=== PATIENT | female | born 1985 | race African-American/Black ===

== ENCOUNTER 2021-03-06 14:09 | Emergency (ER) | payer OTHER ==
[2021-03-06 14:16] VITALS: BP 137/82; PULSE 97; TEMP 98; BMI 21.9
[2021-03-06 15:19] LABS: BASO % 1.3 % (0-2.0); EOS % 3.6 % (0-4.5); HEMATOCRIT 39.6 % (32.4-45.2); LYMPH % 17.9 % (8-40); MCH 29.7 pg (25.7-33.7); MCHC 32.9 g/dl (32.0-36.0); MEAN CELL VOLUME 90.1 fl (80-96); MEAN PLT VOLUME 9.4 fl (7.5-11.1); MONO % 16.5 % (3.8-10.2); NEUT % 60.7 % (42.8-82.8); RBC 4.39 M/mm3 (3.60-5.2); RDW 14.5 % (11.6-15.6); WHITE BLOOD COUNT 5.2 K/mm3 (4.0-10.0)
[2021-03-06 15:24] LABS: HCG,QUALITATIVE URINE Negative
[2021-03-06 15:39] LABS: EPI CELLS >36 /uL (0-25.1); HYALINE CASTS 20 /uL (0-3.1); PH,URINE 6.5 (5.0-8.0); URINE APPEARANCE TURBID; URINE BACTERIA 3729 /uL (0-1359); URINE BILIRUBIN NEGATIVE (NEGATIVE); URINE COLOR ORANGE; URINE GLUCOSE (UA) NEGATIVE (NEGATIVE); URINE KETONE TRACE (NEGATIVE); URINE LEUK ESTERASE 3+ (NEGATIVE); URINE NITRITE NEGATIVE (NEGATIVE); URINE PROTEIN 2+ (NEGATIVE); URINE WBC 5589 /uL (0-25.8)
[2021-03-06 15:42] LABS: CALCIUM 8.9 mg/dL (8.5-10.1)
[2021-03-06 15:43] LABS: ALBUMIN 3.4 g/dl (3.4-5.0)
[2021-03-06 15:46] LABS: CREATININE 0.7 mg/dL (0.55-1.3)
[2021-03-06 15:48] LABS: BILIRUBIN,TOTAL 1.6 mg/dL (0.2-1); TOT PROT 9.7 g/dl (6.4-8.2)
[2021-03-06] MEDS ORDERED: CEPHALEXIN MONOHYDRATE 500 MG CAPSULE (UD) PO ONE (15:52)
[2021-03-06] MEDS ORDERED: CEPHALEXIN MONOHYDRATE 500 MG CAPSULE (UD) ONE (15:55)
[2021-03-06 16:44] LABS: PLATELET COUNT 145 10^3/uL (134-434)
[2021-03-06 19:09] LABS: URINE RBC 2856.7 /uL (0-23.9)
[2021-03-06 19:10] LABS: YEAST NEGATIVE (NEGATIVE)
== END 2021-03-06 19:00 | disposition home or self-care (01) ==
LOC: JERFT 14:09 → JER 14:09 → JERFT 19:00
DX: O20.8 Other hemorrhage in early pregnancy (principal); N30.00 Acute cystitis without hematuria
CPT/HCPCS: 36415; 76830-TC; 80053; 81003; 84703; 85025; 87086; 99284-25

== ENCOUNTER 2021-07-09 16:15 | Emergency (ER) | payer OTHER ==
[2021-07-09 16:21] VITALS: BP 143/90; PULSE 94; TEMP 98.9; BMI 23.8
[2021-07-09 19:09] LABS: BASO % 0.3 % (0-2.0); EOS % 3.5 % (0-4.5); HEMATOCRIT 37.3 % (32.4-45.2); HEMOGLOBIN 12.2 GM/dL (10.7-15.3); LYMPH % 13.3 % (8-40); MCH 29.9 pg (25.7-33.7); MCHC 32.8 g/dl (32.0-36.0); MEAN CELL VOLUME 91.1 fl (80-96); MEAN PLT VOLUME 9.1 fl (7.5-11.1); MONO % 18.9 % (3.8-10.2); PLATELET COUNT 139 10^3/uL (134-434); RDW 15.4 % (11.6-15.6); WHITE BLOOD COUNT 6.2 K/mm3 (4.0-10.0)
[2021-07-09 19:20] LABS: ACTIVATED PTT 41.7 SECONDS (25.2-36.5); INR 1.68 (0.83-1.09); PROTHROMBIN TIME (PATIENT) 19.4 SEC (9.7-13.0)
[2021-07-09 19:31] LABS: CALCIUM 9.4 mg/dL (8.5-10.1)
[2021-07-09 19:32] LABS: ALBUMIN 3.4 g/dl (3.4-5.0); BLOOD UREA NITROGEN 5.2 mg/dL (7-18)
[2021-07-09 19:35] LABS: CREATININE 0.7 mg/dL (0.55-1.3)
[2021-07-09 19:36] LABS: BILIRUBIN,TOTAL 2.5 mg/dL (0.2-1)
== END 2021-07-09 19:53 | disposition home or self-care (01) ==
LOC: JER 16:15
DX: R23.0 Cyanosis (principal)
CPT/HCPCS: 36415; 80053; 85025; 85610; 85730; 99283-25

== ENCOUNTER 2023-03-21 16:32 | Inpatient (IN) | payer OTHER ==
[~2023-03-21 16:32] MED LIST: FOLIC ACID INJECTION - 1 MG, THIAMINE HCL 100 MG, MULTIVIT INJECTION ADULT 10 ML in SOD... IVPB ONE
[2023-03-21 18:43] LABS: INR 2.09 (0.83-1.09); PROTHROMBIN TIME (PATIENT) 24.1 SEC (9.7-13.0)
[2023-03-21 18:44] LABS: EOS % 3.9 % (0-4.5); HEMATOCRIT 26.6 % (32.4-45.2); HEMOGLOBIN 8.6 GM/dL (10.7-15.3); MCH 32.5 pg (25.7-33.7); MCHC 32.3 g/dl (32.0-36.0); MEAN CELL VOLUME 100.6 fl (80-96); MEAN PLT VOLUME 9.6 fl (7.5-11.1); MONO % 16.6 % (3.8-10.2); NEUT % 65.5 % (42.8-82.8); PLATELET COUNT 140 10^3/uL (134-434); RBC 2.64 M/mm3 (3.60-5.2); WHITE BLOOD COUNT 8.5 K/mm3 (4.0-10.0)
[2023-03-21 18:46] LABS: ACTIVATED PTT 38.4 SECONDS (25.2-36.5)
[2023-03-21 18:49] LABS: POTASSIUM 3.4 mmol/L (3.5-5.1)
[2023-03-21 18:51] LABS: ALBUMIN 2.1 g/dl (3.4-5.0); CALCIUM 8.2 mg/dL (8.5-10.1); MAGNESIUM 1.5 mg/dL (1.8-2.4)
[2023-03-21 18:55] LABS: CREATININE 0.8 mg/dL (0.55-1.3)
[2023-03-21 18:56] LABS: BILIRUBIN,TOTAL 7.1 mg/dL (0.2-1); TOT PROT 7.9 g/dl (6.4-8.2)
[2023-03-21] MEDS ORDERED: POTASSIUM CHLORIDE ORAL LIQUID 20 MEQ/15 ML PO ONE (19:21)
[2023-03-21] MEDS ORDERED: MAGNESIUM SULF 50% (8.12 MEQ/2 ML-1 GM VIAL) IVPB ONE (19:21)
[2023-03-21] MEDS ORDERED: MAGNESIUM 1GM/D5W - 1 GM/100 ML IVPB IVPB ONE (20:08)
[2023-03-21] MEDS ORDERED: POTASSIUM CHLORIDE ORAL LIQUID 20 MEQ/15 ML ONE (20:08)
[2023-03-21 21:52] LABS: BILIRUBIN,DIRECT 5.8 mg/dL (0.0-0.2)
[2023-03-21] MEDS ORDERED: ALBUTEROL SO4 HFA INHALER IH PRN (21:56)
[2023-03-21] MEDS: BUDESONIDE/FORMETEROL FUMARATE 160/4.5 mcg INHALER IH SCH (22:54)
[2023-03-21 23:22] LABS: EPI CELLS 21 /uL (0-25.1); HYALINE CASTS 11 /uL (0-3.1); URINE APPEARANCE CLOUDY; URINE BACTERIA 17 /uL (0-1359); URINE BILIRUBIN 2+ (NEGATIVE); URINE COLOR DK YELLOW; URINE GLUCOSE (UA) NEGATIVE (NEGATIVE); URINE KETONE NEGATIVE (NEGATIVE); URINE LEUK ESTERASE 3+ (NEGATIVE); URINE NITRITE NEGATIVE (NEGATIVE); URINE PROTEIN TRACE (NEGATIVE); URINE WBC 883 /uL (0-25.8)
[2023-03-21 23:37] LABS: URINE RBC 552.8 /uL (0-23.9)
[2023-03-22 00:02] VITALS: BMI 29.0
[2023-03-22] MEDS ORDERED: FUROSEMIDE 40 MG/4 ML INJECTABLE VIAL IVPUSH ONE (00:05)
[2023-03-22] MEDS ORDERED: PHYTONADIONE 5 MG TABLET PO SCH (00:06)
[2023-03-22] MEDS ORDERED: THIAMINE HCL 100 MG TABLET (FP) PO SCH (00:08)
[2023-03-22] MEDS ORDERED: FOLIC ACID INJECTION - 1 MG, THIAMINE HCL 100 MG, MULTIVIT INJECTION ADULT 10 ML in SOD... IVPB ONE (01:00)
[2023-03-22] MEDS: LACTULOSE 20 GM/30 ML UDC (FOR ORAL USE ONLY) PO SCH ×4 (06:46→22:19)
[2023-03-22 09:21] LABS: HEMATOCRIT 25.6 % (32.4-45.2); HEMOGLOBIN 8.6 GM/dL (10.7-15.3); MCHC 33.4 g/dl (32.0-36.0); MEAN CELL VOLUME 98.6 fl (80-96); MEAN PLT VOLUME 9.5 fl (7.5-11.1); PLATELET COUNT 124 10^3/uL (134-434); RDW 17.1 % (11.6-15.6); WHITE BLOOD COUNT 8.6 K/mm3 (4.0-10.0)
[2023-03-22 09:25] LABS: INR 2.34 (0.83-1.09); PROTHROMBIN TIME (PATIENT) 26.9 SEC (9.7-13.0)
[2023-03-22 09:27] LABS: ACTIVATED PTT 38.8 SECONDS (25.2-36.5)
[2023-03-22] MEDS ORDERED: PrednisoLONE 15 MG/5 ML UNIT-DOSE CUP PO SCH (10:00)
[2023-03-22] MEDS ORDERED: FUROSEMIDE 40 MG TABLET (FP) PO SCH (10:00)
[2023-03-22] MEDS: SPIRONOLACTONE 25 MG TABLET PO SCH ×3 (10:41→15:49)
[2023-03-22] MEDS: THIAMINE HCL 100 MG TABLET (FP) PO SCH (10:42)
[2023-03-22] MEDS: RIFAXIMIN 550 MG TABLET PO SCH ×2 (10:42→22:19)
[2023-03-22] MEDS: FOLIC ACID 1 MG TABLET (FP) PO SCH ×2 (10:43)
[2023-03-22 10:46] LABS: BLOOD UREA NITROGEN 5.7 mg/dL (7-18)
[2023-03-22 10:48] LABS: CALCIUM 8.6 mg/dL (8.5-10.1)
[2023-03-22] MEDS: BUDESONIDE/FORMETEROL FUMARATE 160/4.5 mcg INHALER IH SCH ×2 (10:48→22:21)
[2023-03-22 10:49] LABS: CREATININE 0.7 mg/dL (0.55-1.3); MAGNESIUM 1.8 mg/dL (1.8-2.4); PHOSPHOROUS 2.4 mg/dL (2.5-4.9)
[2023-03-22 10:50] LABS: BILIRUBIN,DIRECT 5.3 mg/dL (0.0-0.2)
[2023-03-22 10:52] LABS: BILIRUBIN,TOTAL 6.5 mg/dL (0.2-1); TOT PROT 7.5 g/dl (6.4-8.2)
[2023-03-22] MEDS: PHYTONADIONE 5 MG TABLET PO SCH (11:17)
[2023-03-22 12:51] LABS: HIV INTERPRETATION NEGATIVE (NEGATIVE)
[2023-03-22] MEDS: NAPH,MB-DB/K PH,MBDB POWDER PACKET PO SCH ×2 (15:49→22:19)
[2023-03-22] MEDS ORDERED: FUROSEMIDE 40 MG/4 ML INJECTABLE VIAL IVPUSH SCH (23:56)
[2023-03-23] MEDS: LACTULOSE 20 GM/30 ML UDC (FOR ORAL USE ONLY) PO SCH ×3 (06:12→21:49)
[2023-03-23 09:34] LABS: INR 2.39 (0.83-1.09); PROTHROMBIN TIME (PATIENT) 27.5 SEC (9.7-13.0)
[2023-03-23 09:35] LABS: HEMATOCRIT 25.1 % (32.4-45.2); HEMOGLOBIN 8.6 GM/dL (10.7-15.3); MCH 33.7 pg (25.7-33.7); MCHC 34.3 g/dl (32.0-36.0); MEAN CELL VOLUME 98.4 fl (80-96); MEAN PLT VOLUME 9.4 fl (7.5-11.1); PLATELET COUNT 133 10^3/uL (134-434); RBC 2.55 M/mm3 (3.60-5.2); RDW 17.2 % (11.6-15.6); WHITE BLOOD COUNT 10.7 K/mm3 (4.0-10.0)
[2023-03-23] MEDS: RIFAXIMIN 550 MG TABLET PO SCH ×2 (09:43→21:49)
[2023-03-23] MEDS: THIAMINE HCL 100 MG TABLET (FP) PO SCH (09:44)
[2023-03-23] MEDS: SPIRONOLACTONE 25 MG TABLET PO SCH (09:44)
[2023-03-23] MEDS: FOLIC ACID 1 MG TABLET (FP) PO SCH (09:45)
[2023-03-23] MEDS: FUROSEMIDE 20 MG TABLET (FP) PO SCH (09:45)
[2023-03-23] MEDS: PHYTONADIONE 5 MG TABLET PO SCH (09:45)
[2023-03-23] MEDS: BUDESONIDE/FORMETEROL FUMARATE 160/4.5 mcg INHALER IH SCH ×2 (09:46→21:50)
[2023-03-23 10:02] LABS: POTASSIUM 3.8 mmol/L (3.5-5.1)
[2023-03-23 10:17] LABS: CALCIUM 8.4 mg/dL (8.5-10.1)
[2023-03-23 10:18] LABS: ALBUMIN 1.8 g/dl (3.4-5.0); MAGNESIUM 1.6 mg/dL (1.8-2.4)
[2023-03-23 10:21] LABS: CREATININE 0.9 mg/dL (0.55-1.3); PHOSPHOROUS 2.7 mg/dL (2.5-4.9)
[2023-03-23 10:23] LABS: BILIRUBIN,TOTAL 5.9 mg/dL (0.2-1); TOT PROT 7.2 g/dl (6.4-8.2)
[2023-03-23] MEDS ORDERED: MAGNESIUM SULF 50% (8.12 MEQ/2 ML-1 GM VIAL) IVPB ONE (16:27)
[2023-03-24 04:04] VITALS: RESP 18
[2023-03-24] MEDS: LACTULOSE 20 GM/30 ML UDC (FOR ORAL USE ONLY) PO SCH ×3 (07:11→21:24)
[2023-03-24 09:40] LABS: HEMATOCRIT 26.9 % (32.4-45.2); HEMOGLOBIN 8.9 GM/dL (10.7-15.3); MCH 33.4 pg (25.7-33.7); MCHC 33.1 g/dl (32.0-36.0); MEAN CELL VOLUME 100.9 fl (80-96); MEAN PLT VOLUME 9.2 fl (7.5-11.1); PLATELET COUNT 133 10^3/uL (134-434); RBC 2.67 M/mm3 (3.60-5.2); RDW 16.8 % (11.6-15.6); WHITE BLOOD COUNT 10.6 K/mm3 (4.0-10.0)
[2023-03-24 09:43] LABS: INR 2.16 (0.83-1.09); PROTHROMBIN TIME (PATIENT) 24.9 SEC (9.7-13.0)
[2023-03-24 10:08] LABS: POTASSIUM 4.3 mmol/L (3.5-5.1)
[2023-03-24 10:16] LABS: CALCIUM 8.7 mg/dL (8.5-10.1)
[2023-03-24 10:17] LABS: BILIRUBIN,DIRECT 5.1 mg/dL (0.0-0.2); BLOOD UREA NITROGEN 8.3 mg/dL (7-18); MAGNESIUM 1.8 mg/dL (1.8-2.4)
[2023-03-24 10:20] LABS: CREATININE 0.8 mg/dL (0.55-1.3); PHOSPHOROUS 3.5 mg/dL (2.5-4.9)
[2023-03-24 10:21] LABS: BILIRUBIN,TOTAL 6.5 mg/dL (0.2-1); TOT PROT 7.6 g/dl (6.4-8.2)
[2023-03-24] MEDS: FUROSEMIDE 20 MG TABLET (FP) PO SCH (10:44)
[2023-03-24] MEDS: THIAMINE HCL 100 MG TABLET (FP) PO SCH (10:44)
[2023-03-24] MEDS: SPIRONOLACTONE 25 MG TABLET PO SCH (10:44)
[2023-03-24] MEDS: FOLIC ACID 1 MG TABLET (FP) PO SCH (10:44)
[2023-03-24] MEDS: PHYTONADIONE 5 MG TABLET PO SCH (10:44)
[2023-03-24] MEDS: BUDESONIDE/FORMETEROL FUMARATE 160/4.5 mcg INHALER IH SCH ×2 (10:44→21:25)
[2023-03-24] MEDS: RIFAXIMIN 550 MG TABLET PO SCH ×2 (10:44→21:25)
[2023-03-24 18:51] LABS: BF WBC & OTHER NUCLEATED CELLS 256 /mm3; BODY FLUID MACROPHAGES 16 %; BODY FLUID MESOTHELIAL 2 %; BODY FLUID MONOCYTE 60 %
[2023-03-24 20:30] LABS: ALBUMIN 2.1 g/dl (3.4-5.0)
[2023-03-25] MEDS: LACTULOSE 20 GM/30 ML UDC (FOR ORAL USE ONLY) PO SCH ×2 (06:13→13:38)
[2023-03-25 08:38] LABS: HEMATOCRIT 27.6 % (32.4-45.2); HEMOGLOBIN 8.9 GM/dL (10.7-15.3); MCH 32.4 pg (25.7-33.7); MCHC 32.1 g/dl (32.0-36.0); MEAN CELL VOLUME 100.9 fl (80-96); MEAN PLT VOLUME 9.2 fl (7.5-11.1); RBC 2.74 M/mm3 (3.60-5.2); RDW 17.2 % (11.6-15.6)
[2023-03-25 08:43] LABS: WHITE BLOOD COUNT 11.3 K/mm3 (4.0-10.0)
[2023-03-25 09:11] LABS: POTASSIUM 4.6 mmol/L (3.5-5.1)
[2023-03-25 09:15] LABS: CALCIUM 8.3 mg/dL (8.5-10.1)
[2023-03-25 09:16] LABS: BLOOD UREA NITROGEN 11.5 mg/dL (7-18)
[2023-03-25] MEDS: RIFAXIMIN 550 MG TABLET PO SCH (09:16)
[2023-03-25] MEDS: BUDESONIDE/FORMETEROL FUMARATE 160/4.5 mcg INHALER IH SCH (09:16)
[2023-03-25] MEDS: FOLIC ACID 1 MG TABLET (FP) PO SCH (09:16)
[2023-03-25] MEDS: FUROSEMIDE 20 MG TABLET (FP) PO SCH (09:16)
[2023-03-25] MEDS: SPIRONOLACTONE 25 MG TABLET PO SCH (09:16)
[2023-03-25] MEDS: THIAMINE HCL 100 MG TABLET (FP) PO SCH (09:16)
[2023-03-25 09:19] LABS: CREATININE 0.8 mg/dL (0.55-1.3)
[2023-03-25 09:20] LABS: TOT PROT 7.5 g/dl (6.4-8.2)
[2023-03-25 09:21] LABS: BILIRUBIN,TOTAL 5.8 mg/dL (0.2-1)
[2023-03-25 09:38] LABS: PLATELET COUNT 78 10^3/uL (134-434)
[2023-03-25 14:19] VITALS: BP 105/66; PULSE 84; TEMP 98.1
[2023-03-26 12:08] LABS: BODY FLUID ALBUMIN 0.6 g/dL (Not Estab.)
== END 2023-03-25 18:19 | disposition home or self-care (01) | DRG 280 ==
LOC: JER 16:32 → JERBED 20:54 → OBSVTOIN 22:09 → JERBED 23:24 → J6S 03-22 00:07
PROVIDERS: ADMIT Internal Medicine; ATTEND Internal Medicine
PROC: BW40ZZZ Ultrasonography of Abdomen (ICD-10-PCS; principal; 2023-03-24)
PROC: 0W9G3ZZ Drainage of Peritoneal Cavity, Percutaneous Approach (ICD-10-PCS; 2023-03-24)
DX: K70.31 Alcoholic cirrhosis of liver with ascites (principal); K70.11 Alcoholic hepatitis with ascites; K76.6 Portal hypertension; I85.10 Secondary esophageal varices without bleeding; K50.90 Crohn's disease, unspecified, without complications; E80.6 Other disorders of bilirubin metabolism; F10.10 Alcohol abuse, uncomplicated; R79.89 Other specified abnormal findings of blood chemistry; E87.6 Hypokalemia; E83.42 Hypomagnesemia; K76.0 Fatty (change of) liver, not elsewhere classified
CPT/HCPCS: 36415; 71045-TC-FY; 76700-TC; 76942-TC; 80048; 80053; 80061; 80076; 81003; 82040; 82042; 82140; 82150; 82248; 82465; 82728; 82945; 83010; 83540; 83550; 83605; 83615; 83690; 83735; 83986; 84100; 84157; 84466; 84478; 84703; 85025; 85027; 85610; 85730; 86850; 86900; 86901; 87070; 87075; 87102; 87116; 87205; 87206; 87210; 87389; 88108; 88305-TC; 93005; 93010; 99285-25; G0378

== ENCOUNTER 2023-11-11 13:50 | Emergency (ER) | payer OTHER ==
[2023-11-11 14:03] VITALS: TEMP 98.8; BMI 28.5
[2023-11-11 15:18] LABS: BASO % 0.5 % (0-2.0); EOS % 3.1 % (0-4.5); HEMATOCRIT 26.6 % (32.4-45.2); LYMPH % 11.2 % (8-40); MCH 34.3 pg (25.7-33.7); MCHC 33.7 g/dl (32.0-36.0); MEAN PLT VOLUME 9.1 fl (7.5-11.1); MONO % 13.9 % (3.8-10.2); NEUT % 71.3 % (42.8-82.8); PLATELET COUNT 105 10^3/uL (134-434); RBC 2.61 M/mm3 (3.60-5.2); WHITE BLOOD COUNT 8.7 K/mm3 (4.0-10.0)
[2023-11-11 15:28] LABS: ACTIVATED PTT 35.4 SECONDS (25.2-36.5); INR 2.21 (0.83-1.09); PROTHROMBIN TIME (PATIENT) 24.8 SEC (9.7-13.0)
[2023-11-11 15:46] LABS: POTASSIUM 5.1 mmol/L (3.5-5.1)
[2023-11-11 15:48] LABS: ALBUMIN 1.6 g/dl (3.4-5.0); BLOOD UREA NITROGEN 8.1 mg/dL (7-18); CALCIUM 8.1 mg/dL (8.5-10.1)
[2023-11-11 15:50] LABS: BILIRUBIN,DIRECT 8.2 mg/dL (0.0-0.2); CREATININE 1.3 mg/dL (0.55-1.3)
[2023-11-11 15:53] LABS: BILIRUBIN,TOTAL 14.5 mg/dL (0.2-1); TOT PROT 7.7 g/dl (6.4-8.2)
[2023-11-11] MEDS ORDERED: MAGNESIUM SULFATE IN WATER 2 GM/50 ML IVPB IVPB ONE (16:20)
[2023-11-11] MEDS: MAGNESIUM SULF 50% (8.12 MEQ/2 ML-1 GM VIAL) IVPB ONE (16:25)
[2023-11-11 17:07] LABS: MAGNESIUM 1.8 mg/dL (1.8-2.4)
[2023-11-11 17:33] VITALS: BP 106/65; PULSE 79; RESP 16
== END 2023-11-11 18:40 | disposition home or self-care (01) ==
LOC: JER 13:50
PROC: 3E033GC Introduction of Other Therapeutic Substance into Peripheral Vein, Percutaneous Approach (ICD-10-PCS; principal; 2023-11-11)
DX: K70.31 Alcoholic cirrhosis of liver with ascites (principal); R10.9 Unspecified abdominal pain; R14.0 Abdominal distension (gaseous)
CPT/HCPCS: 36415; 76705-TC; 80053; 80076; 83690; 83735; 84703; 85025; 85610; 85730; 93005; 93010; 96374; 99285-25

== ENCOUNTER 2024-03-17 14:38 | Inpatient (IN) | payer OTHER ==
[2024-03-17 14:46] VITALS: BMI 31.1
[2024-03-17] MEDS ORDERED: FUROSEMIDE 40 MG/4 ML INJECTABLE VIAL ONE (17:18)
[2024-03-17] MEDS: FUROSEMIDE 40 MG/4 ML INJECTABLE VIAL IVPUSH ONE (17:23)
[2024-03-17 17:26] LABS: BASO % 0.7 % (0-2.0); EOS % 6.4 % (0-4.5); HEMATOCRIT 23.4 % (32.4-45.2); HEMOGLOBIN 7.8 GM/dL (10.7-15.3); LYMPH % 17.3 % (8-40); MCH 36.2 pg (25.7-33.7); MCHC 33.4 g/dl (32.0-36.0); MEAN CELL VOLUME 108.2 fl (80-96); MEAN PLT VOLUME 8.5 fl (7.5-11.1); MONO % 14.3 % (3.8-10.2); NEUT % 61.3 % (42.8-82.8); PLATELET COUNT 96 10^3/uL (134-434); RBC 2.16 M/mm3 (3.60-5.2); RDW 15.3 % (11.6-15.6); WHITE BLOOD COUNT 6.8 K/mm3 (4.0-10.0)
[2024-03-17 17:37] LABS: INR 3.08 (0.83-1.09); PROTHROMBIN TIME (PATIENT) 34.3 SEC (9.7-13.0)
[2024-03-17 17:40] LABS: ACTIVATED PTT 40.2 SECONDS (25.2-36.5)
[2024-03-17 17:49] LABS: CHLORIDE 107 mmol/L (98-107); SODIUM 136 mmol/L (136-145)
[2024-03-17 17:51] LABS: CALCIUM 7.3 mg/dL (8.5-10.1)
[2024-03-17 17:52] LABS: ALBUMIN 1.3 g/dl (3.4-5.0); BLOOD UREA NITROGEN 4.2 mg/dL (7-18); CO2 22 mmol/L (21-32); GLUCOSE,RANDOM 102 mg/dL (74-106)
[2024-03-17 17:55] LABS: CREATININE 0.9 mg/dL (0.55-1.3); SGOT/AST 98 U/L (15-37); SGPT/ALT 28 U/L (13-61)
[2024-03-17 17:57] LABS: BILIRUBIN,TOTAL 7.4 mg/dL (0.2-1); TOT PROT 7.1 g/dl (6.4-8.2)
[2024-03-17 17:58] LABS: ALK PHOS 228 U/L (45-117)
[2024-03-17 18:12] LABS: ANION GAP 7 mmol/L (4-13); POTASSIUM 2.7 mmol/L (3.5-5.1)
[2024-03-17 18:34] LABS: EPI CELLS 19 /uL (0-25.1); HYALINE CASTS 3 /uL (0-3.1); URINE APPEARANCE CLOUDY; URINE BACTERIA 3570 /uL (0-1359); URINE BILIRUBIN 3+ (NEGATIVE); URINE COLOR DK YELLOW; URINE GLUCOSE (UA) NEGATIVE (NEGATIVE); URINE KETONE TRACE (NEGATIVE); URINE LEUK ESTERASE 2+ (NEGATIVE); URINE NITRITE POSITIVE (NEGATIVE); URINE PROTEIN 1+ (NEGATIVE); URINE RBC 4448 /uL (0-23.9); URINE WBC 73 /uL (0-25.8)
[2024-03-17 18:34] LABS: MAGNESIUM 1.6 mg/dL (1.8-2.4)
[2024-03-17] MEDS ORDERED: MAGNESIUM SULFATE IN WATER 2 GM/50 ML IVPB IVPB ONE (18:49)
[2024-03-17] MEDS ORDERED: POTASSIUM CHLORIDE ORAL LIQUID 20 MEQ/15 ML ONE (18:49)
[2024-03-17 18:54] LABS: ANISOCYTOSIS 2+; MACROCYTOSIS 2+; TARGET CELLS 2+
[2024-03-17] MEDS: MAGNESIUM SULF 50% (8.12 MEQ/2 ML-1 GM VIAL) IVPB ONE (19:03)
[2024-03-17] MEDS: POTASSIUM CHLORIDE ORAL LIQUID 20 MEQ/15 ML PO ONE (19:04)
[2024-03-17] MEDS ORDERED: cefTRIAXone SODIUM 1 GM VIAL ONE (20:42)
[2024-03-17] MEDS: KCL 10 MEQ IVPB 10 MEQ/100 ML INFUS.BAG IVPB SCH (20:42)
[2024-03-17] MEDS ORDERED: KCL 10 MEQ IVPB 10 MEQ/100 ML INFUS.BAG IVPB ONE ×2 (20:42→22:45)
[2024-03-17 21:31] LABS: BILIRUBIN,DIRECT 5.6 mg/dL (0.0-0.2)
[2024-03-17 22:19] LABS: HIV INTERPRETATION NEGATIVE (NEGATIVE)
[2024-03-18] MEDS ORDERED: KCL 10 MEQ IVPB 10 MEQ/100 ML INFUS.BAG IVPB ONE (00:25)
[2024-03-18] MEDS ORDERED: ALBUTEROL SO4 HFA INHALER IH PRN (00:32)
[2024-03-18] MEDS: RIFAXIMIN 550 MG TABLET PO SCH (01:50)
[2024-03-18 02:23] LABS: POTASSIUM 3.2 mmol/L (3.5-5.1)
[2024-03-18 02:24] LABS: CALCIUM 7.5 mg/dL (8.5-10.1)
[2024-03-18 02:25] LABS: BLOOD UREA NITROGEN 4.7 mg/dL (7-18); MAGNESIUM 1.9 mg/dL (1.8-2.4)
[2024-03-18 02:28] LABS: CREATININE 0.8 mg/dL (0.55-1.3)
[2024-03-18] MEDS ORDERED: LACTULOSE 20 GM/30 ML UDC (FOR ORAL USE ONLY) PO PRN (06:00)
[2024-03-18 08:28] LABS: HEMATOCRIT 22.5 % (32.4-45.2); HEMOGLOBIN 7.5 GM/dL (10.7-15.3); INR 3.12 (0.83-1.09); MCH 36.3 pg (25.7-33.7); MCHC 33.5 g/dl (32.0-36.0); MEAN CELL VOLUME 108.2 fl (80-96); MEAN PLT VOLUME 9.1 fl (7.5-11.1); PLATELET COUNT 64 10^3/uL (134-434); PROTHROMBIN TIME (PATIENT) 34.1 SEC (9.7-13.0); RBC 2.08 M/mm3 (3.60-5.2); RDW 15.3 % (11.6-15.6); WHITE BLOOD COUNT 5.6 K/mm3 (4.0-10.0)
[2024-03-18 08:31] LABS: ACTIVATED PTT 41.5 SECONDS (25.2-36.5)
[2024-03-18] MEDS: POTASSIUM PHOSPHATE 30 MM in SODIUM CHLORIDE 500 ML IVPB ONE (08:43)
[2024-03-18 08:44] LABS: POTASSIUM 3.2 mmol/L (3.5-5.1)
[2024-03-18 08:46] LABS: ALBUMIN 1.1 g/dl (3.4-5.0); CALCIUM 7.6 mg/dL (8.5-10.1)
[2024-03-18 08:47] LABS: BLOOD UREA NITROGEN 4.4 mg/dL (7-18); MAGNESIUM 1.9 mg/dL (1.8-2.4)
[2024-03-18 08:49] LABS: CREATININE 0.8 mg/dL (0.55-1.3)
[2024-03-18 08:50] LABS: BILIRUBIN,TOTAL 6.1 mg/dL (0.2-1); PHOSPHOROUS 2.8 mg/dL (2.5-4.9)
[2024-03-18 08:51] LABS: TOT PROT 6.6 g/dl (6.4-8.2)
[2024-03-18] MEDS: THIAMINE 100 MG TABLET PO SCH (10:34)
[2024-03-18] MEDS: FOLIC ACID 1 MG TABLET (FP) PO SCH (10:34)
[2024-03-18] MEDS ORDERED: POTASSIUM CHLORIDE ORAL LIQUID 20 MEQ/15 ML ONE (12:07)
[2024-03-18] MEDS ORDERED: PHYTONADIONE 5 MG TABLET ONE (12:09)
[2024-03-18] MEDS ORDERED: PHYTONADIONE 10 MG/1 ML AMP ONE (12:10)
[2024-03-18] MEDS: PHYTONADIONE 10 MG/1 ML AMP SQ ONE (13:00)
[2024-03-18] MEDS: POTASSIUM CHLORIDE ORAL LIQUID 20 MEQ/15 ML PO ONE (13:00)
[2024-03-18] MEDS: PHYTONADIONE 5 MG TABLET PO ONE (13:00)
[2024-03-18 14:01] VITALS: BP 101/61; TEMP 98.8
[2024-03-18 18:38] VITALS: PULSE 76; RESP 16
[2024-03-18] MEDS ORDERED: CEFTRIAXONE 1 G/50 ML PREMIX 50 ML IVPB SCH (19:00)
[2024-03-18] MEDS ORDERED: MIRTAZAPINE 15 MG TABLET (FP) PO SCH (22:00)
[2024-03-18] MEDS ORDERED: LACTULOSE 20 GM/30 ML UDC (FOR ORAL USE ONLY) PO SCH (22:00)
[2024-03-18] MEDS ORDERED: traZODone HCL 50 MG TABLET (FP) PO SCH (22:00)
[2024-03-18] MEDS ORDERED: ARIPiprazole 5 MG TABLET PO SCH (22:00)
[2024-03-19] MEDS ORDERED: SPIRONOLACTONE 25 MG TABLET PO SCH (10:00)
[2024-03-19] MEDS ORDERED: FUROSEMIDE 20 MG TABLET (FP) PO SCH (10:00)
== END 2024-03-18 18:52 | disposition short-term general hospital (02) | DRG 280 ==
LOC: JER 14:38 → JERBED 18:40
PROVIDERS: ADMIT Internal Medicine; ATTEND Internal Medicine
DX: K70.31 Alcoholic cirrhosis of liver with ascites (principal); D68.9 Coagulation defect, unspecified; F10.20 Alcohol dependence, uncomplicated; N39.0 Urinary tract infection, site not specified; N92.0 Excessive and frequent menstruation with regular cycle; E87.6 Hypokalemia; F20.9 Schizophrenia, unspecified; E87.70 Fluid overload, unspecified; E83.42 Hypomagnesemia; K50.90 Crohn's disease, unspecified, without complications; E72.20 Disorder of urea cycle metabolism, unspecified; D64.9 Anemia, unspecified; J45.909 Unspecified asthma, uncomplicated; G47.00 Insomnia, unspecified; D69.6 Thrombocytopenia, unspecified; E66.9 Obesity, unspecified; Z68.31 Body mass index [BMI] 31.0-31.9, adult; Z91.148 Patient's other noncompliance with medication regimen for other reason
CPT/HCPCS: 36415; 71045-TC-FY; 76700-TC; 76830-TC; 76856-TC; 80048; 80053; 81003; 82140; 82248; 82607; 82728; 82746; 83540; 83550; 83735; 84100; 85025; 85027; 85045; 85610; 85730; 86803; 86850; 86900; 86901; 87389; 87635; 93005; 93010; 99291